=== PATIENT | male | born 1950 | race Caucasian/White ===

== ENCOUNTER 2017-02-27 20:52 | Emergency (ER) | payer MEDICARE, BC ==
[~2017-02-27 20:52] MED LIST: ALPR1 PO; METHO500 PO; PREV30CA36 PO
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
[2017-02-27 22:00] VITALS: PULSE 84; RESP 18; TEMP 98.2; O2SAT 97
[2017-02-27] MEDS ORDERED: XANA1TAB2 PO (22:07)
[2017-02-27 22:22] VITALS: BP 122/59
== END 2017-02-28 00:32 | disposition home or self-care (01) ==
LOC: NEPD 20:52
DX: F10.920 Alcohol use, unspecified with intoxication, uncomplicated (principal)
CPT/HCPCS: 99283